=== PATIENT | male | born 1965 | race Asian ===

== ENCOUNTER 2018-03-10 13:40 | Emergency (ER) | payer OTHER ==
[~2018-03-10] VITALS: Ht 182.9 cm; Wt 66.2 kg
[2018-03-10 14:12] LABS: PLATELET COUNT 269 K/uL (142-355)
[2018-03-10 14:21] LABS: POTASSIUM 4.2 mmol/L (3.6-5.2)
[2018-03-10 14:50] VITALS: BP 136/71; TEMP 97.8
[2018-03-10] MEDS ORDERED: FLUP25IN8 IM (15:48)
[2018-03-10] MEDS ORDERED: MULTIVITAMI1 PO (15:49)
[2018-03-10] MEDS ORDERED: PAXIL40 MG PO (15:50)
[2018-03-10] MEDS ORDERED: CLON0.5T36 PO (15:51)
[2018-03-10] MEDS ORDERED: VITAMIN D32000 UNI1 PO (15:51)
[2018-03-10] MEDS ORDERED: TETRABENAZINE25 MG PO (15:52)
[2018-03-10] MEDS ORDERED: DIVALPROEX250 M1 PO (15:54)
== END 2018-03-10 14:50 | disposition other institution (70) ==
LOC: ED 13:40
PROVIDERS: Internal Medicine
DX: R41.82 Altered mental status, unspecified (principal); G10 Huntington's disease; D64.89 Other specified anemias; Z04.6 Encounter for general psychiatric examination, requested by authority
CPT/HCPCS: 36415; 80053; 85027; 93005; 99285